=== PATIENT | female | born 1945 | race Caucasian/White ===

== ENCOUNTER 2018-07-07 21:11 | Inpatient (IN) | payer MEDICARE ==
[~2018-07-07] VITALS: Ht 163.8 cm; Wt 80.5 kg
[2018-07-07] MEDS ORDERED: ALBU18HF2 INH (21:27)
[2018-07-07] MEDS ORDERED: METF500T PO (21:27)
[2018-07-07] MEDS ORDERED: PROG200C16 PO (21:27)
[2018-07-07] MEDS ORDERED: MONT5TAB14 PO (21:27)
--- NOTE | 2018-07-07 21:27 | NUR ---
MED REC INCOMPLETE DUE TO PT NOT ABLE TO RECALL MEDICATION LIST.
[2018-07-07] MEDS ORDERED: DOPamine 400mg/D5W 250ml 250 ML IV SCH ×2 (21:50→23:25)
[2018-07-07 21:53] LABS: ALANINE AMINOTRANSFERASE 61 U/L (12-78); ALBUMIN 3.4 G/DL (3.4-5.0); ALBUMIN/GLOBULIN RATIO 1.1 (1.1-1.5); ALKALINE PHOSPHATASE 47 IU/L (46-116); ANION GAP 13 (8-16); ASPARTATE AMINO TRANSFERASE 22 U/L (10-37); BILIRUBIN,TOTAL 0.4 MG/DL (0.1-1.0); BLOOD UREA NITROGEN 32 MG/DL (7-18); BUN/CREATININE RATIO 27.1 (6.6-38.0); CALCIUM 8.7 MG/DL (8.5-10.1); CHLORIDE 104 MMOL/L (99-107); CREATININE 1.18 MG/DL (0.40-0.90); GLUCOSE 146 MG/DL (70-104); MAGNESIUM 1.8 MG/DL (1.5-2.4); POTASSIUM 3.9 MMOL/L (3.5-5.1); SODIUM 140 MMOL/L (135-145); TOTAL CARBON DIOXIDE 22.6 MMOL/L (24-32); TOTAL PROTEIN 6.4 G/DL (6.4-8.2); eGFR 45 ML/MIN
[2018-07-07] MEDS: normal saline 1000ml 1,000 ML IV SCH (23:13)
[2018-07-07] MEDS ORDERED: magnesium 4gm in 100ml NS 100 ML IV PRN (23:15)
[2018-07-07] MEDS ORDERED: potassium Cl 20 mEq SR tablet PO PRN ×2 (23:15)
[2018-07-07] MEDS ORDERED: dextrose ORAL solution 15 GM/59 ML bottle PO PRN ×2 (23:15)
[2018-07-07] MEDS ORDERED: potassium Cl 40MEQ/NS 500ml 500 ML IV PRN ×2 (23:15)
[2018-07-07] MEDS ORDERED: Neutra Phos packet PO PRN (23:15)
[2018-07-07] MEDS ORDERED: glucagon, human recombinant 1mg kit SUBCUT PRN (23:15)
[2018-07-07] MEDS ORDERED: ipratropium/albuterol 3ml nebule NEB PRN (23:15)
[2018-07-07] MEDS ORDERED: magnesium Cl slow-release 64mg tablet PO PRN (23:15)
[2018-07-07] MEDS ORDERED: dextrose 50%-water 50ml dispensing syringe IV PRN ×2 (23:15)
[2018-07-07] MEDS ORDERED: sodium phosphate inj. 15 MMOL in dextrose 5%-water 150 ML IV PRN (23:15)
[2018-07-07] MEDS ORDERED: sodium phosphate inj. 30 MMOL in dextrose 5%-water 250 ML IV PRN (23:15)
[2018-07-07] MEDS ORDERED: insulin Lispro (HumaLOG) vial - multi-dose SQ SCH (23:15)
[2018-07-07] MEDS ORDERED: MESSAGE TO PHARMACY PO ONE (23:15)
[2018-07-07] MEDS ORDERED: ondansetron/PF 4mg/2ml inj IV PRN (23:15)
[2018-07-07] MEDS ORDERED: ondansetron/PF 4mg/2ml inj IV ONE (23:25)
[2018-07-07 23:53] LABS: BASOPHILS # (AUTO) 0.1 X10'3 (0-0.2); BASOPHILS % (AUTO) 1.1 % (0-1); EOSINOPHILS # (AUTO) 0.3 X10'3 (0-0.9); EOSINOPHILS % (AUTO) 2.7 % (0-6); HEMOGLOBIN 12.4 g/dl (12.0-16.0); LYMPHOCYTES # (AUTO) 3.1 X10'3 (1.1-4.8); LYMPHOCYTES % (AUTO) 31.5 % (21-51); MEAN CORPUSCULAR HEMOGLOBIN 27.1 PG (27.0-31.0); MEAN CORPUSCULAR HGB CONC 31.8 % (33.0-36.5); MEAN CORPUSCULAR VOLUME 85.3 FL (78-98); MEAN PLATELET VOLUME 11.1 FL (7.4-10.4); MONOCYTES # (AUTO) 0.5 X10'3 (0-0.9); MONOCYTES % (AUTO) 5.2 % (2-12); NEUTROPHILS # (AUTO) 5.9 X10'3 (1.8-7.7); NEUTROPHILS % (AUTO) 59.5 % (42-75); PLATELET COUNT 223 X10'3 (140-440); RED BLOOD COUNT 4.58 X10'6 (4.20-5.60); RED CELL DISTRIBUTION WIDTH 14.6 % (11.5-14.5); WHITE BLOOD COUNT 9.9 X10'3 (4.5-11.0)
[2018-07-08] VITALS (21 sets, daily range): BP systolic 101–142; BP diastolic 38–79
[2018-07-08 00:02] LABS: TROPONIN I < 0.04 NG/ML (0.0-0.05)
[2018-07-08 00:38] LABS: HEMOGLOBIN A1C 7.7 % (4.5-6.2)
--- NOTE | 2018-07-08 05:39 | NUR ---
[id number] I have received report and assumed care of pt. Pt admited from ER in a complete atrioventricular block, she does report mild nausea and dizzyness, unable to obtain an blood pressure with an automatic cuff however a manual cuff works just fine, speech is clear thought process is clear, pt will be NPO after [address] maker placement, pt does have the external pacemaker in place at bedside incase she becomes symptomatic, low dose dopamine in place per md orders for cardiac support.
[2018-07-08 06:02] LABS: BASOPHILS # (AUTO) 0.1 X10'3 (0-0.2); BASOPHILS % (AUTO) 0.5 % (0-1); EOSINOPHILS # (AUTO) 0.2 X10'3 (0-0.9); EOSINOPHILS % (AUTO) 1.9 % (0-6); HEMATOCRIT 36.8 % (35.0-45.0); HEMOGLOBIN 12.1 g/dl (12.0-16.0); LYMPHOCYTES # (AUTO) 2.5 X10'3 (1.1-4.8); LYMPHOCYTES % (AUTO) 20.7 % (21-51); MEAN CORPUSCULAR HEMOGLOBIN 28.2 PG (27.0-31.0); MEAN CORPUSCULAR VOLUME 85.6 FL (78-98); MEAN PLATELET VOLUME 10.5 FL (7.4-10.4); MONOCYTES # (AUTO) 0.7 X10'3 (0-0.9); MONOCYTES % (AUTO) 6.2 % (2-12); NEUTROPHILS # (AUTO) 8.4 X10'3 (1.8-7.7); NEUTROPHILS % (AUTO) 70.7 % (42-75); PLATELET COUNT 213 X10'3 (140-440); RED CELL DISTRIBUTION WIDTH 14.9 % (11.5-14.5); WHITE BLOOD COUNT 11.9 X10'3 (4.5-11.0)
--- NOTE | 2018-07-08 06:21 | NUR ---
report given to rec rn plan of care reviewed
[2018-07-08 06:29] LABS: ALANINE AMINOTRANSFERASE 62 U/L (12-78); ALBUMIN 3.1 G/DL (3.4-5.0); ALKALINE PHOSPHATASE 38 IU/L (46-116); ANION GAP 11 (8-16); ASPARTATE AMINO TRANSFERASE 20 U/L (10-37); BILIRUBIN,TOTAL 0.4 MG/DL (0.1-1.0); BLOOD UREA NITROGEN 31 MG/DL (7-18); CALCIUM 8.3 MG/DL (8.5-10.1); CHLORIDE 108 MMOL/L (99-107); CREATININE 1.07 MG/DL (0.40-0.90); GLUCOSE 162 MG/DL (70-104); MAGNESIUM 1.8 MG/DL (1.5-2.4); PHOSPHORUS 4.2 MG/DL (2.3-4.5); POTASSIUM 4.1 MMOL/L (3.5-5.1); SODIUM 141 MMOL/L (135-145); TOTAL CARBON DIOXIDE 22.2 MMOL/L (24-32); TOTAL PROTEIN 6.1 G/DL (6.4-8.2); eGFR 50 ML/MIN
--- NOTE | 2018-07-08 06:29 | NUR ---
Patient in room CICU 2009. I have received report from SUSI Curtis and had the opportunity to ask questions and assume patient care.
[2018-07-08 06:34] LABS: INR 1.1 INR; PARTIAL THROMBOPLASTIN TIME 25 SECONDS (22-32); PROTHROMBIN TIME 11.1 SECONDS (9.0-12.0)
[2018-07-08] MEDS: K, MAG and/or Phos replacement - Verify level? MC SCH (07:48)
[2018-07-08] MEDS: heparin, porcine 5000 units/ml vial SQ SCH ×2 (08:00→20:14)
[2018-07-08] MEDS ORDERED: PROGESTERONE MICRONIZED 200 MG PO SCH (08:00)
[2018-07-08] MEDS ORDERED: progesterone, micronized 100mg capsule PO SCH (08:00)
[2018-07-08] MEDS: montelukast 10mg tablet PO SCH (08:34)
[2018-07-08] MEDS: normal saline 1000ml 1,000 ML IV SCH ×2 (09:13→19:57)
[2018-07-08] MEDS ORDERED: clindamycin 600mg/D5W 50ml 50 ML IV ONE (10:44)
[2018-07-08] MEDS ORDERED: lidocaine 1%/epinephrine 1:100,000 injection 50ml vial ONE (10:44)
[2018-07-08] MEDS ORDERED: clindamycin phosphate 150mg/ml inj. ONE (10:44)
--- NOTE | 2018-07-08 11:00 | NUR ---
Pt prepped for pacemaker. Anxious regarding anesthesia but spoke with Dr. Alarcon on the phone and agreed to procedure. Taken to clinical lab clerk by SUSI Dumont with zoll monitor hooked up.
[2018-07-08] MEDS ORDERED: midazolam 2 mg/2 ml injection ONE (11:16)
[2018-07-08] MEDS ORDERED: proCHLORperazine 10 MG/2 ml inj ONE (11:24)
[2018-07-08] MEDS ORDERED: fentaNYL/PF 50MCG/1 ML 2ML syringe ONE ×2 (11:24→12:22)
[2018-07-08] MEDS ORDERED: diphenhydrAMINE 50 mg/ml inj ONE (11:25)
[2018-07-08] MEDS ORDERED: glucagon, human recombinant 1mg kit SUBCUT PRN ×2 (11:55→12:15)
[2018-07-08] MEDS ORDERED: insulin Lispro (HumaLOG) vial - multi-dose SQ SCH (11:55)
[2018-07-08] MEDS ORDERED: dextrose ORAL solution 15 GM/59 ML bottle PO PRN ×2 (11:55)
[2018-07-08] MEDS ORDERED: MESSAGE TO PHARMACY PO ONE (11:55)
[2018-07-08] MEDS ORDERED: dextrose 50%-water 50ml dispensing syringe IV PRN ×4 (11:55→12:15)
[2018-07-08] MEDS ORDERED: insulin regular, human vial - multi-dose SQ SCH (11:55)
--- NOTE | 2018-07-08 12:20 | NUR ---
DM/Malnutrition consults: Pt admit w/ complete AV heart block per MD note. Hx T2DM A1C 7.7 takes metformin at home as well as diarrhea past month; per EMR pt reports hx IBS. C.diff, parasites pending per MD note. RD d/w RN to add carb controlled diet to current heart healthy. IF stool cultures negative and persistent diarrhea dennis need additional low-residue diet. Pt undergoing test during RD visit; will return for DM ed prior to d/c. Pt BMI 30 w/ no edema, wounds, weakness, or visible muscle/fat wasting. Does not qualify for malnutrition at this time. Will monitor for additional criteria this admit. Addendum: 07/08/18 at [address] Amended: Links added.
--- NOTE | 2018-07-08 13:00 | NUR ---
Pt arrived back from lab manager. Pt alert, oriented with stable vitals. Asking for water. Pressure dressing in place and sling put on. Pt educated on post PPM instructions in regards to movement and showering. Will continue to monitor.
[2018-07-08] MEDS ORDERED: meperidine/PF 25mg/ml syringe IV PRN (13:40)
[2018-07-08] MEDS: clindamycin 600mg/D5W 50ml IVPB IV SCH (17:25)
--- NOTE | 2018-07-08 17:30 | NUR ---
Pt requesting pain meds in addition to her iv demerol q8h for breakthrough pain. States she would like Naproxen, will inform table games shift manager RN
--- NOTE | 2018-07-08 17:50 | NUR ---
Pt up to bedside commode. VSS, no longer SOB with exertion.
--- NOTE | 2018-07-08 18:34 | NUR ---
Problems reprioritized. Patient report given, questions answered & plan of care reviewed with SUSI Carolina.
--- NOTE | 2018-07-08 18:39 | NUR ---
Patient in room CICU 2009. I have received report from Dorita GOLDMAN, and had the opportunity to ask questions and assume patient care.
--- NOTE | 2018-07-08 19:45 | NUR ---
PT is resting with no s/s of distress noted at this time. VSS. PT states she was not hungry at this time and would like to eat dinner a little later, tray set aside for when she's ready. LT arm is in a sling, pressure drsg still over PPM site. CDI. PT states she is in pain, informed PT awaiting METALIZING MACHINE OPERATOR [employer]ATIC Anderson to arrive to discuss pain meds. Bed is locked and low. Call light is within reach. Will continue to monitor.
[2018-07-08] MEDS: meperidine/PF 25mg/ml syringe IV PRN (19:58)
--- NOTE | 2018-07-08 20:15 | NUR ---
PT receiving 25mg IVP Demerol, previous order Q8H, PT was not having sufficient pain relief. Dose was kept the same, frequency modified to Q4H. Will continue to monitor.
[2018-07-08] MEDS ORDERED: insulin glargine (Lantus) pen - multi-dose SQ SCH ×2 (21:00)
[2018-07-08] MEDS: insulin glargine (Lantus) pen - multi-dose SQ SCH (21:00)
[2018-07-08] MEDS: temazepam 15mg capsule PO PRN (22:03)
--- NOTE | 2018-07-08 23:30 | NUR ---
PT resting with no s/s of distress noted at this time, sleeping off and on. VSS. Pain in under better control. Bed is locked and low. Call light is within reach. Will continue to monitor.
[2018-07-09] VITALS (20 sets, daily range): BP systolic 114–165; BP diastolic 60–87
[2018-07-09] MEDS: meperidine/PF 25mg/ml syringe IV PRN ×6 (00:08→20:50)
[2018-07-09] MEDS: clindamycin 600mg/D5W 50ml IVPB IV SCH ×2 (02:04→13:39)
--- NOTE | 2018-07-09 03:00 | NUR ---
PT continues to rest with no s/s of distress. PT pain level has been improved and tolerating Pain meds. Bed is locked and low. Call light is within reach. Will continue to monitor.
[2018-07-09] MEDS: normal saline 1000ml 1,000 ML IV SCH ×3 (04:16→20:45)
[2018-07-09 05:49] LABS: BASOPHILS % (AUTO) 0.5 % (0-1); EOSINOPHILS # (AUTO) 0.5 X10'3 (0-0.9); EOSINOPHILS % (AUTO) 5.1 % (0-6); HEMATOCRIT 36.3 % (35.0-45.0); LYMPHOCYTES # (AUTO) 1.8 X10'3 (1.1-4.8); LYMPHOCYTES % (AUTO) 18.6 % (21-51); MEAN CORPUSCULAR VOLUME 84.9 FL (78-98); MEAN PLATELET VOLUME 9.8 FL (7.4-10.4); MONOCYTES # (AUTO) 0.4 X10'3 (0-0.9); MONOCYTES % (AUTO) 4.7 % (2-12); NEUTROPHILS # (AUTO) 6.8 X10'3 (1.8-7.7); NEUTROPHILS % (AUTO) 71.1 % (42-75); PLATELET COUNT 196 X10'3 (140-440); RED BLOOD COUNT 4.27 X10'6 (4.20-5.60); RED CELL DISTRIBUTION WIDTH 14.5 % (11.5-14.5); WHITE BLOOD COUNT 9.5 X10'3 (4.5-11.0)
[2018-07-09 05:56] LABS: INR 1.1 INR; PARTIAL THROMBOPLASTIN TIME 26 SECONDS (22-32); PROTHROMBIN TIME 11.2 SECONDS (9.0-12.0)
[2018-07-09 06:03] LABS: ALANINE AMINOTRANSFERASE 59 U/L (12-78); ALKALINE PHOSPHATASE 51 IU/L (46-116); ANION GAP 12 (8-16); ASPARTATE AMINO TRANSFERASE 25 U/L (10-37); BILIRUBIN,TOTAL 0.5 MG/DL (0.1-1.0); BLOOD UREA NITROGEN 22 MG/DL (7-18); CALCIUM 7.6 MG/DL (8.5-10.1); CHLORIDE 106 MMOL/L (99-107); CREATININE 1.05 MG/DL (0.40-0.90); GLUCOSE 150 MG/DL (70-104); MAGNESIUM 1.5 MG/DL (1.5-2.4); PHOSPHORUS 3.5 MG/DL (2.3-4.5); POTASSIUM 4.4 MMOL/L (3.5-5.1); SODIUM 139 MMOL/L (135-145); TOTAL CARBON DIOXIDE 21.1 MMOL/L (24-32); eGFR 52 ML/MIN
--- NOTE | 2018-07-09 06:30 | NUR ---
Patient in room CICU 2009. I have received report from SUSI Shore and had the opportunity to ask questions and assume patient care.
--- NOTE | 2018-07-09 06:44 | NUR ---
Problems reprioritized. Patient report given, questions answered & plan of care reviewed with Madalyn GOLDMAN.
[2018-07-09] MEDS: K, MAG and/or Phos replacement - Verify level? MC SCH (08:00)
[2018-07-09] MEDS: heparin, porcine 5000 units/ml vial SQ SCH ×2 (08:11→20:12)
[2018-07-09] MEDS: montelukast 10mg tablet PO SCH (08:12)
--- NOTE | 2018-07-09 11:00 | NUR ---
Dr. Higginbotham arrived on unit and assessed pt, updated on pt condition, pt states she feels uncomfortable going home today due to inability to move her left arm, and she does not want to be a burden to her friend whom she is staying with. order received to transfer pt to PCU with tele. Updated pts family on plan of care. will get case coordinator involve to try to get her some resources tmr.
--- NOTE | 2018-07-09 13:52 | NUR ---
Pt seen by JEFFREY for written/verbal DM ed. RD contact information provided. Pt agrees to Glucerna TIDWM since current nausea/pain and low PO. Pt reports losing her [employer] supply in [employer] w/ home and ordered more from [facility] since can't afford locally but it will take 3 weeks to arrive; also takes metformin. RD encouraged CDE course. S/p pacemaker placement. Will continue to monitor. Addendum: 07/09/18 at [address] Amended: Links added.
--- NOTE | 2018-07-09 15:06 | NUR ---
pt is awake and alert, oriented x4. VSS. left chest dressing c/d/i. left arm in sling, non weight-bearing. OOB to bedside commodes. last BM 07/07. pain meds given for pain relief. awaiting bed at PCU.
--- NOTE | 2018-07-09 16:35 | NUR ---
Problems reprioritized. Patient report given, questions answered & plan of care reviewed with SUSI Arzate. Transported pt via wheelchair to room 3020.
--- NOTE | 2018-07-09 16:37 | NUR ---
Patient in room CICU 2009. I have received report from Madalyn GOLDMAN in ICU and had the opportunity to ask questions and assume patient care.
--- NOTE | 2018-07-09 17:10 | NUR ---
Received patient to room in 3020 on tele monitor, she is AV paced with a new pacer placement. left arm is in a sling and she received pain meds before coming to the this floor. Patient given call light and POC updated.
--- NOTE | 2018-07-09 18:26 | NUR ---
Patient in room PCU 3020. I have received report from JUSTYN GOLDMAN and had the opportunity to ask questions and assume patient care. PATIENT AWAKE IN NO DISTRESS; EATING DINNER
--- NOTE | 2018-07-09 18:26 | NUR ---
Problems reprioritized. Patient report given, questions answered & plan of care reviewed with Night RN.
[2018-07-09] MEDS: progesterone, micronized 100mg capsule PO SCH (20:13)
[2018-07-09] MEDS: insulin glargine (Lantus) pen - multi-dose SQ SCH (20:55)
[2018-07-09] MEDS: temazepam 15mg capsule PO PRN (22:01)
[2018-07-10 02:52] VITALS: BP 145/69
[2018-07-10] MEDS: meperidine/PF 25mg/ml syringe IV PRN ×4 (03:53→19:38)
[2018-07-10 05:24] LABS: BASOPHILS # (AUTO) 0.1 X10'3 (0-0.2); BASOPHILS % (AUTO) 0.8 % (0-1); EOSINOPHILS # (AUTO) 0.1 X10'3 (0-0.9); EOSINOPHILS % (AUTO) 0.7 % (0-6); HEMATOCRIT 35.5 % (35.0-45.0); LYMPHOCYTES # (AUTO) 1.4 X10'3 (1.1-4.8); LYMPHOCYTES % (AUTO) 10.9 % (21-51); MEAN CORPUSCULAR HEMOGLOBIN 28.3 PG (27.0-31.0); MEAN CORPUSCULAR HGB CONC 33.7 % (33.0-36.5); MEAN CORPUSCULAR VOLUME 84.1 FL (78-98); MEAN PLATELET VOLUME 9.7 FL (7.4-10.4); MONOCYTES # (AUTO) 0.6 X10'3 (0-0.9); MONOCYTES % (AUTO) 4.8 % (2-12); NEUTROPHILS # (AUTO) 10.4 X10'3 (1.8-7.7); NEUTROPHILS % (AUTO) 82.8 % (42-75); PLATELET COUNT 168 X10'3 (140-440); RED BLOOD COUNT 4.22 X10'6 (4.20-5.60); RED CELL DISTRIBUTION WIDTH 14.4 % (11.5-14.5); WHITE BLOOD COUNT 12.6 X10'3 (4.5-11.0)
[2018-07-10 05:43] LABS: ALANINE AMINOTRANSFERASE 47 U/L (12-78); ALBUMIN 2.8 G/DL (3.4-5.0); ALBUMIN/GLOBULIN RATIO 0.9 (1.1-1.5); ALKALINE PHOSPHATASE 48 IU/L (46-116); ANION GAP 9 (8-16); ASPARTATE AMINO TRANSFERASE 13 U/L (10-37); BILIRUBIN,TOTAL 0.5 MG/DL (0.1-1.0); BLOOD UREA NITROGEN 10 MG/DL (7-18); BUN/CREATININE RATIO 12.8 (6.6-38.0); CALCIUM 7.8 MG/DL (8.5-10.1); CHLORIDE 105 MMOL/L (99-107); CREATININE 0.78 MG/DL (0.40-0.90); GLUCOSE 172 MG/DL (70-104); MAGNESIUM 1.4 MG/DL (1.5-2.4); PHOSPHORUS 2.2 MG/DL (2.3-4.5); POTASSIUM 3.9 MMOL/L (3.5-5.1); SODIUM 138 MMOL/L (135-145); TOTAL CARBON DIOXIDE 23.9 MMOL/L (24-32); eGFR 73 ML/MIN
--- NOTE | 2018-07-10 06:17 | NUR ---
Problems reprioritized. Patient report given, questions answered & plan of care reviewed with JUSTYN GOLDMAN. PATIENT ASLEEP IN NO DISTRESS
[2018-07-10 08:00] VITALS: BP 108/69
[2018-07-10] MEDS: montelukast 10mg tablet PO SCH ×2 (08:00→08:20)
[2018-07-10] MEDS: K, MAG and/or Phos replacement - Verify level? MC SCH (08:00)
[2018-07-10] MEDS: heparin, porcine 5000 units/ml vial SQ SCH ×2 (08:20→19:41)
[2018-07-10] MEDS: normal saline 1000ml 1,000 ML IV SCH (11:13)
[2018-07-10 13:00] VITALS: BP 135/58
--- NOTE | 2018-07-10 15:42 | NUR ---
Initial: Pt admitted for heart block s/p pacemaker placement. Pt currently on a heart healthy CHO controlled diet with fluctuations in PO intake. Previously 100%, then 0-25%, documented intake 50% at lunch this afternoon. Pt seen at bedside states she has a lower appetite than usual however she isn't eating as much d/t not liking the food. Food preferences obtained, d/w dietary. Pt states she hasn't been receiving Glucerna but would like to, d/w dietary. Pt denies any food allergies or difficulty chewing/swallowing. LBM 07/08, pt states she would like prunes with dinner tonight, d/w dietary. Will continue to follow. Recommendations: 1) Continue with heart healthy CHO controlled diet 2) Glucerna TID 3) [place] yogurt with dinner; cottage cheese with fresh fruit and banana at breakfast 4) Wt per rx Addendum: 07/10/18 at [address] Amended: Links added.
--- NOTE | 2018-07-10 18:23 | NUR ---
Problems reprioritized. Patient report given, questions answered & plan of care reviewed with Radha GOLDMAN.
--- NOTE | 2018-07-10 19:23 | NUR ---
Patient in room PCU 3020. I have received report from Carito GOLDMAN and had the opportunity to ask questions and assume patient care.
[2018-07-10] MEDS ORDERED: montelukast 10mg tablet PO SCH (21:00)
[2018-07-10] MEDS: insulin glargine (Lantus) pen - multi-dose SQ SCH (21:00)
--- NOTE | 2018-07-10 21:04 | NUR ---
CALLED [employer] ABOUT PATIENT ASKING FOR NAPROXEN SPECIFICALLY; PATIENT APPARENTLY TAKES 500MG AT HOME. [employer] WANTED ME TO ENTER THIS INTO THE MED REC BUT I WAS UNABLE TO SINCE THE MED REC HAS BEEN COMPLETED FOR D/C. ATTEMPTED TO CALL BACK BUT SHE WOULD NOT ANSWER COULDNT LEAVE MESSAGE
[2018-07-10] MEDS: progesterone, micronized 100mg capsule PO SCH (21:06)
[2018-07-10] MEDS: temazepam 15mg capsule PO PRN (21:06)
[2018-07-10] MEDS ORDERED: naproxen 500mg tablet PO PRN (21:40)
[2018-07-10] MEDS ORDERED: montelukast 10mg tablet PO ONE (21:40)
[2018-07-10] MEDS ORDERED: naproxen 500mg tablet PO ONE (21:40)
[2018-07-10 22:39] VITALS: BP 136/63
--- NOTE | 2018-07-11 00:13 | NUR ---
Problems reprioritized. Patient report given, questions answered & plan of care reviewed with debra guzman.
--- NOTE | 2018-07-11 00:15 | NUR ---
Patient in room PCU 3020. I have received report from Radha GOLDMAN and had the opportunity to ask questions and assume patient care.
[2018-07-11 03:00] VITALS: BP 99/63
[2018-07-11 06:00] VITALS: BP 146/74
--- NOTE | 2018-07-11 06:10 | NUR ---
Problems reprioritized. Patient report given, questions answered & plan of care reviewed with Rocío GOLDMAN.
[2018-07-11 06:27] LABS: BASOPHILS % (AUTO) 0.4 % (0-1); EOSINOPHILS # (AUTO) 0.3 X10'3 (0-0.9); EOSINOPHILS % (AUTO) 2.8 % (0-6); HEMATOCRIT 35.2 % (35.0-45.0); HEMOGLOBIN 11.6 g/dl (12.0-16.0); LYMPHOCYTES # (AUTO) 2.3 X10'3 (1.1-4.8); LYMPHOCYTES % (AUTO) 22.7 % (21-51); MEAN CORPUSCULAR HEMOGLOBIN 28.2 PG (27.0-31.0); MEAN CORPUSCULAR VOLUME 85.5 FL (78-98); MEAN PLATELET VOLUME 9.2 FL (7.4-10.4); MONOCYTES # (AUTO) 0.8 X10'3 (0-0.9); NEUTROPHILS # (AUTO) 6.6 X10'3 (1.8-7.7); NEUTROPHILS % (AUTO) 66.1 % (42-75); PLATELET COUNT 180 X10'3 (140-440); RED BLOOD COUNT 4.12 X10'6 (4.20-5.60); RED CELL DISTRIBUTION WIDTH 14.5 % (11.5-14.5)
--- NOTE | 2018-07-11 06:30 | NUR ---
Patient in room PCU 3020. I have received report from Arturo GOLDMAN and had the opportunity to ask questions and assume patient care. Pt awake and alert, pt does not appear to be in distress at time of transfer.
[2018-07-11 06:35] LABS: ALANINE AMINOTRANSFERASE 33 U/L (12-78); ALBUMIN 2.7 G/DL (3.4-5.0); ALBUMIN/GLOBULIN RATIO 0.9 (1.1-1.5); ALKALINE PHOSPHATASE 46 IU/L (46-116); ANION GAP 7 (8-16); ASPARTATE AMINO TRANSFERASE 9 U/L (10-37); BILIRUBIN,TOTAL 0.5 MG/DL (0.1-1.0); BLOOD UREA NITROGEN 10 MG/DL (7-18); BUN/CREATININE RATIO 13.3 (6.6-38.0); CALCIUM 7.9 MG/DL (8.5-10.1); CHLORIDE 106 MMOL/L (99-107); CREATININE 0.75 MG/DL (0.40-0.90); GLUCOSE 124 MG/DL (70-104); MAGNESIUM 1.7 MG/DL (1.5-2.4); PHOSPHORUS 2.4 MG/DL (2.3-4.5); POTASSIUM 3.8 MMOL/L (3.5-5.1); SODIUM 140 MMOL/L (135-145); TOTAL PROTEIN 5.8 G/DL (6.4-8.2); eGFR 76 ML/MIN
[2018-07-11] MEDS: meperidine/PF 25mg/ml syringe IV PRN (07:28)
[2018-07-11] MEDS: heparin, porcine 5000 units/ml vial SQ SCH (07:41)
[2018-07-11] MEDS: K, MAG and/or Phos replacement - Verify level? MC SCH (08:00)
[2018-07-11 11:00] VITALS: BP 152/76
--- NOTE | 2018-07-11 13:52 | NUR ---
Removed monitor and IV, pt tolerated well. Pt accompanied by friend and wheeled down to private vehicle via nurse's aide. Pt stable at time of transfer. Pt no longer on the floor.
== END 2018-07-11 13:50 | disposition home or self-care (01) | DRG 243 ==
LOC: ER 21:12 → ED HOLD 23:13 → CICU 2S 07-08 01:55 → PCU 3S 07-09 16:52
PROVIDERS: ATTEND Internal Medicine Critical Care Medicine
PROC: 0JH606Z Insertion of Pacemaker, Dual Chamber into Chest Subcutaneous Tissue and Fascia, Open Approach (ICD-10-PCS; principal; 2018-07-08)
PROC: 02H63JZ Insertion of Pacemaker Lead into Right Atrium, Percutaneous Approach (ICD-10-PCS; 2018-07-08)
PROC: 02HK3JZ Insertion of Pacemaker Lead into Right Ventricle, Percutaneous Approach (ICD-10-PCS; 2018-07-08)
DX: I44.2 Atrioventricular block, complete (principal); D68.69 Other thrombophilia; F12.90 Cannabis use, unspecified, uncomplicated; E11.9 Type 2 diabetes mellitus without complications; I44.7 Left bundle-branch block, unspecified; I48.91 Unspecified atrial fibrillation; G47.00 Insomnia, unspecified; J45.909 Unspecified asthma, uncomplicated; K58.0 Irritable bowel syndrome with diarrhea; Z90.722 Acquired absence of ovaries, bilateral; Z88.0 Allergy status to penicillin; Z88.1 Allergy status to other antibiotic agents; Z88.6 Allergy status to analgesic agent; Z79.899 Other long term (current) drug therapy; Z79.84 Long term (current) use of oral hypoglycemic drugs
CPT/HCPCS: 33208; 36415; 71045; 71046; 80053; 82948; 83036; 83735; 83880; 84100; 84484; 85025; 85610; 85730; 86885; 86900; 86901; 87070; 87324; 87328; 87329; 87336; 87449; 93005; 93306; 94640; 94760; 96365; 99152; 99153; 99285; A4565; A4620; C1785; C1894; C1898; G0378; J0780; J1200; J1265; J1644; J1815; J2175; J2250; J2405; J3010; J3490; J7030